=== PATIENT | male | born 1995 | race Native Hawaiian/Other Pacific Islander ===

== ENCOUNTER 2021-07-21 05:32 | Emergency (ER) | payer BC ==
[~2021-07-21] VITALS: Ht 190.5 cm; Wt 89.8 kg
[2021-07-21 06:51] VITALS: BP 119/75; TEMP 98.4
== END 2021-07-21 06:50 | disposition home or self-care (01) ==
LOC: ED 05:32
DX: H65.191 Other acute nonsuppurative otitis media, right ear (principal)
CPT/HCPCS: 99283